=== PATIENT | male | born 1960 | race Caucasian/White ===

== ENCOUNTER → 2016-07-02 | Outpatient (CLI) | payer OTHER ==
--- NOTE | 2016-07-02 13:21 | REP ---
And views cervical spine series 20 17 Indication: tingling in fingers Comparison: None Findings:. There is loss of cervical lordosis with satisfactory flexion and extension with flexion and extension is satisfactory. There is mild disc space narrowing at C3-4 with small posterior marginal osteophytes. At C5-6 there are small anterior and posterior marginal osteophytes. There is no acute fracture or prevertebral soft tissue swelling. There is mild narrowing of the bilateral neural foramina at C3-4 . There is mild narrowing C5-6 neural foramen on the right. There is no acute fracture or prevertebral soft tissue swelling. Impression 1. Loss of cervical lordosis. Satisfactory range of motion with flexion and extension. Mild degenerative disc changes C3-4 with posterior marginal osteophytes and mild bilateral foraminal narrowing. 2. Mild degenerative disc changes C5-6 with mild right foraminal narrowing. Signed by Melissa Cuenca MD 07/02/2016 01:12 P
== END ==
LOC: M RAD 12:41
PROVIDERS: ATTEND Neurological Surgery
DX: M47.892 Other spondylosis, cervical region (principal)

== ENCOUNTER → 2016-08-18 | Outpatient (REF) | payer OTHER | LOC: M LAB REF 16:35 | PROVIDERS: ATTEND Neurological Surgery | DX: Z01.818 Encounter for other preprocedural examination (principal) ==

== ENCOUNTER → 2016-08-18 | Outpatient (CLI) | payer OTHER ==
[~2016-08-18] MED LIST: ASPI1TAB PO; LOSA100T36 PO; SIMV40TA2 PO
--- NOTE | 2016-08-18 17:16 | ECGEPIP ---
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
[2016-08-18 18:17] LABS: BASO # 0.1 K/mm3 (0.0-0.2); BASO % 0.8 % (0.0-1.0); EOS # 0.5 K/mm3 (0.0-0.50); EOS % 5.5 % (0.0-3.0); INR 0.88; LARGE UNSTAINED CELL # 0.2 K/mm3 (0.0-0.4); LARGE UNSTAINED CELL % 1.9 % (0.0-4.0); LYMPH % 18.9 % (24.0-44.0); MEAN CORPUSCULAR HEMOGLOBIN 29.1 pg (27.0-33.0); MEAN CORPUSCULAR HGB CONC 33.3 g/dl (32.0-36.5); MEAN CORPUSCULAR VOLUME 87.6 fl (80.0-96.0); MONO # 0.7 K/mm3 (0.0-0.8); MONO % 6.6 % (0.0-5.0); NEUTROPHILS # 6.5 K/mm3 (1.8-7.7); NEUTROPHILS % 66.3 % (36.0-66.0); PLATELET COUNT, AUTOMATED 240 k/mm3 (150-450); RED CELL DISTRIBUTION WIDTH 12.7 % (11.5-14.5); WHITE BLOOD COUNT 9.8 K/mm3 (4.0-10.0)
--- NOTE | 2016-08-18 18:17 | REP ---
Chest two views HISTORY: Obesity Comparison: 09/10/2002 The lungs are clear. The heart is normal in size. The pulmonary vasculature is normal in appearance. The bony structure is intact. IMPRESSION: No acute disease. Signed by Alexander Magana MD 08/18/2016 06:09 P
[2016-08-18 18:19] LABS: ALBUMIN 4.2 GM/DL (3.2-5.2); ALKALINE PHOSPHATASE 101 U/L (45-117); ALT/SGPT 25 U/L (12-78); ANION GAP 9 MEQ/L (8-16); AST/SGOT 25 U/L (15-37); BILIRUBIN,TOTAL 0.3 MG/DL (0.2-1.0); BLOOD UREA NITROGEN 21 MG/DL (7-18); CARBON DIOXIDE LEVEL 27 MEQ/L (21-32); CHLORIDE LEVEL 103 MEQ/L (98-107); CREATININE FOR GFR 1.24 MG/DL (0.70-1.30); GLOMERULAR FILTRATION RATE > 60.0 (>56); GLUCOSE, FASTING 92 MG/DL (70-105); POTASSIUM SERUM 4.4 MEQ/L (3.5-5.1); SODIUM LEVEL 139 MEQ/L (136-145); TOTAL PROTEIN 7.2 GM/DL (6.4-8.2)
[2016-08-18 20:09] LABS: COLLAGEN ADP 140 SECONDS (56-103)
== END ==
LOC: M LAB 16:48
PROVIDERS: ATTEND Neurological Surgery
DX: Z01.818 Encounter for other preprocedural examination (principal); G56.01 Carpal tunnel syndrome, right upper limb

== ENCOUNTER → 2016-09-15 | Day surgery (SDC) | payer OTHER ==
[~2016-09-15] VITALS: Ht 177.8 cm; Wt 106.6 kg
[~2016-09-15] MED LIST changes: +LIDOCAINE 0.5% SDV INJ 50 ML VIAL As Ordered ONE; +LIDOCAINE 1% SDV INJ 30 ML VIAL As Ordered ONE; +LIDOCAINE 2% INJ 100 MG/5 ML SDV (FOR ANES.) As Ordered ONE; +LR 1,000 ML IV SCH; +LevoFLOXacin IV 500 MG in APPROPRIATE DILUENT 1 EA IV ONE; +MIDAZOLAM INJ 2 MG/2 ML VIAL (J2250) As Ordered ONE; +MORPHINE 2 MG/ML 1ML SYRINGE IV PRN; +NORCO, ANEXSIA 5/325MG TABLET (HYDROcodone/ACETAMINOPHEN) PO PRN; +ONDANSETRON 4MG/2ML VIAL (J2405) IV PRN; +PERCOCET 5MG/325MG TAB PO PRN; +PROPOFOL 200 MG/20 ML VIAL As Ordered ONE; +ceFAZolin 2 GM/D5W 50 ML IV BAG (J0690) As Ordered ONE; +ceFAZolin 2 GM/D5W 50 ML IV BAG (J0690) IV ONE; +ceFAZolin SOD 1 GM in D5W MINI-BAG PLUS 50 ML IV ONE; +ceFAZolin SOD 500 MG in D5W MINI-BAG PLUS 50 ML IV ONE; +dexameTHASONE 4 MG/ML 1ML VIAL (J1100) IV ONE; +methylPREDNISolone SUSP 40 MG/ML (DEPO-medrol) VIAL (J1030) As Ordered ONE
--- NOTE | 2016-09-15 08:18 | IPNPDOC ---
Date Seen The patient was seen on 09/15/16. Progress Note Mr Ernandez was seen pre-operatively. SUBJECTIVE: Patient is a 56-year-old white male who is scheduled to undergo a right carpal tunnel release performed by Dr Maegan Ewing and administrative assistant receptionist, Edelmira DIAS. He is present today with his . 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 He frequently drops items. He and his state they would like to proceed with the planned and scheduled right carpal tunnel release today. He denies any chest pain, shortness of breath, abdominal pain, nausea, vomiting , or any recent fevers or illness. He quit smoking in January. He has not had surgery in the past. OBJECTIVE Pt is resting comfortably in the pre-op area accompanied by his . He is alert and orientated x3. Participating in conversation well. Breathing comfortably. Skin is intact with no signs of erythema, openings in the skin, or infection. FROM in his fingers, wrists, and elbow bilaterally. He denies any allergies. ASSESSMENT AND PLAN: This is a 56-year-old white male who is scheduled to undergo a right carpal tunnel release. His pre-op blood work has been reviewed. His surgical options were once again discussed with him and his . He understands surgery is not curative and he may require multiple surgeries in the future. He understands that no guarantees can be given of any kind and aware of the scope, expected outcome, sequela, and all possible risks of surgery. Risks of surgery discussed include but not limited to , coma, loss of body functions, persistent worsening of symptoms or deficits, failure of surgery, need for multiple surgeries, infection , bleeding, blood clots or DVT, VA, and any catastrophic sequel. Patient and his wish to proceed with the proposed surgery. Pertinent arrangements have been made. All questions have been answered to patient and his 's satisfaction. ARUN Coleman VS, I&O, 24H, Fishbone Vital Signs/I&O Vital Signs Date Time Temp Pulse Resp B/P Pulse Ox O2 Delivery O2 Flow Rate FiO2 09/15/16 06:39 98.2 68 18 136/91 94 Room Air Laboratory Data 24H LABS Laboratory Tests 2 09/15/16 06:22: Platelet Func Collagen/Epinephrine 115 EDELMIRA WYNNE PA-C Sep 15, 2016 08:18
[2016-09-15 09:55] VITALS: BP 184/107
--- NOTE | 2016-09-15 10:51 | RO ---
DATE OF PROCEDURE: 09/15/2016 PREPROCEDURE DIAGNOSIS: Right carpal tunnel syndrome. POSTPROCEDURE DIAGNOSIS: Right carpal tunnel syndrome. PROCEDURE: Decompression of the median nerve at the carpal tunnel at the wrist with external neurolysis. SURGEON: Shelly Ewing MD APPLICATION OPERATIONS ENGINEER: ANESTHESIA: Nerve block with MAC. FINDINGS: Please see my office notes for detailed preoperative evaluation and discussions. The patient was seen in the preoperative area with his . There was no clinical change. The patient was aware of all options, risk, scope, expected outcomes, sequelae and all possible complications of the surgery. He understood the salvage nature of the procedure. The patient and his understood the risk of surgery included , persistence or worsening of symptoms and failure of surgery, need for multiple surgeries, development of reflex sympathetic dystrophy, infection, bleeding, and/or any catastrophic sequalae. The patient once again stated that there is no way that he can live with these symptoms and is willing to take any or all risks for any possible benefit. He understood that not all of his symptoms could be readily explained to carpal tunnel syndrome; thus, not all may be addressed. After all matters pertaining to the surgery, anesthesia and followup care have been discussed with him, he wished to proceed with surgery. DESCRIPTION OF PROCEDURE: Once in the operating room, nerve block was given by anesthesia service, as well as conscious sedation. After adequate prep and drape, a skin incision was given following one of the palmar creases distal to the wrist crease. Alveolar layer was reached and incised. Cut edges of blood vessels were coagulated with bipolar cautery. Tendons of palmaris longus were . Thenar and hypothenar muscles were stripped off the flexor retinaculum, which was then incised in its entirety. There was nodular hypertrophy of the flexor retinaculum, which was indenting and compressing the median nerve in a few places. There was also some peroneal scaring. Superficial scarring of the median nerve was removed and complete decompression appeared to have taken place. At this time, the wound was closed in two layers. The patient tolerated the procedure well and was transferred out of the operating room in stable condition. Operative findings were discussed with the patient's in the waiting room. The patient and his had followup instructions.
== END | disposition home or self-care (01) ==
LOC: M SDC 05:36
PROVIDERS: ATTEND Neurological Surgery
DX: G56.01 Carpal tunnel syndrome, right upper limb (principal); I10 Essential (primary) hypertension; M47.892 Other spondylosis, cervical region; E66.9 Obesity, unspecified; Z79.82 Long term (current) use of aspirin; Z79.899 Other long term (current) drug therapy; E78.5 Hyperlipidemia, unspecified; Z87.891 Personal history of nicotine dependence
CPT/HCPCS: 36415; 64721; 85576; J0690; J1030; J2250

== ENCOUNTER → 2022-03-26 | Outpatient (CLI) | payer OTHER ==
[~2022-03-26] MED LIST changes: -ASPI1TAB PO; +ASPI81TA26 PO; -LIDOCAINE 0.5% SDV INJ 50 ML VIAL As Ordered ONE; -LIDOCAINE 1% SDV INJ 30 ML VIAL As Ordered ONE; -LIDOCAINE 2% INJ 100 MG/5 ML SDV (FOR ANES.) As Ordered ONE; -LOSA100T36 PO; +LOSA100T45 PO; -LR 1,000 ML IV SCH; -LevoFLOXacin IV 500 MG in APPROPRIATE DILUENT 1 EA IV ONE; -MIDAZOLAM INJ 2 MG/2 ML VIAL (J2250) As Ordered ONE; -MORPHINE 2 MG/ML 1ML SYRINGE IV PRN; -NORCO, ANEXSIA 5/325MG TABLET (HYDROcodone/ACETAMINOPHEN) PO PRN; -ONDANSETRON 4MG/2ML VIAL (J2405) IV PRN; -PERCOCET 5MG/325MG TAB PO PRN; -PROPOFOL 200 MG/20 ML VIAL As Ordered ONE; -SIMV40TA2 PO; +SIMV40TA20 PO; -ceFAZolin 2 GM/D5W 50 ML IV BAG (J0690) As Ordered ONE; -ceFAZolin 2 GM/D5W 50 ML IV BAG (J0690) IV ONE; -ceFAZolin SOD 1 GM in D5W MINI-BAG PLUS 50 ML IV ONE; -ceFAZolin SOD 500 MG in D5W MINI-BAG PLUS 50 ML IV ONE; -dexameTHASONE 4 MG/ML 1ML VIAL (J1100) IV ONE; -methylPREDNISolone SUSP 40 MG/ML (DEPO-medrol) VIAL (J1030) As Ordered ONE
== END ==
LOC: M RAD 08:57
PROVIDERS: ATTEND Internal Medicine Nephrology
DX: I70.1 Atherosclerosis of renal artery (principal)

== ENCOUNTER → 2024-06-11 | Outpatient (CLI) | payer MEDICARE, OTHER ==
[~2024-06-11] MED LIST changes: -LOSA100T45 PO; +LOSA100T46 PO
== END ==
LOC: M WUC 10:13
PROVIDERS: ATTEND Nurse Practitioner Family
DX: R05.9 Cough, unspecified (principal)